=== PATIENT | male | born 1950 | race African-American/Black ===

== ENCOUNTER → 2019-11-19 | Outpatient (CLI) | payer MEDICARE ==
[2015-10-29 10:38] VITALS: BP 145/76
[~2019-11-19] MED LIST: ALLO300T PO; AMLO-187 PO; ASPI-630 PO; ATOR40TA PO; CALC-584 PO; DOCU-109 PO; FERR325T14 PO; GABA-585 PO; HYDR-2761 PO; HYDR-2765 PO; HYDR-3164 PO; LOSA1TAB25 PO; MAGN400T5 PO; MELO15TA6 PO; METH750T2 PO; METO25TA4 PO; MULT-505 PO; ONDA4TAB10 SL; POTA20TA4 PO; RIVA20TA2 PO; SOTA80TA48 PO; TAMS0.4C97 PO; TORS20TA2 PO; [UNRECOGNIZED DRUG - CODE] IV
[2019-11-19 11:05] LABS: BASO % 1 % (0-3); EOS # 0.1 x10^3/uL (0.0-0.7); EOS % 3 % (0-3); HEMATOCRIT 33.1 % (39.0-53.0); HEMOGLOBIN 10.9 g/dL (13.0-17.5); LYMPH # 1.2 x10^3/uL (1.0-4.8); LYMPH % 26 % (24-48); MEAN CORPUSCULAR HEMOGLOBIN 29 pg (25-35); MEAN CORPUSCULAR HGB CONC 33 g/dL (31-37); MEAN CORPUSCULAR VOLUME 87 fL (79-100); MONO # 0.2 x10^3/uL (0.0-1.1); MONO % 5 % (0-9); NEUT % 65 % (31-73); PLATELET COUNT 214 x10^3/uL (140-400); RED BLOOD COUNT 3.79 x10^6/uL (4.30-5.70); RED CELL DISTRIBUTION WIDTH 16.4 % (11.5-14.5); WHITE BLOOD COUNT 4.6 x10^3/uL (4.0-11.0)
[2019-11-19 11:18] LABS: ALBUMIN/GLOBULIN RATIO 0.6 (1.0-1.7); CALCIUM 7.7 mg/dL (8.5-10.1); CREATININE 1.3 mg/dL (0.7-1.3); POTASSIUM 3.7 mmol/L (3.5-5.1); TOTAL BILIRUBIN 0.4 mg/dL (0.2-1.0); TOTAL PROTEIN 8.1 g/dL (6.4-8.2)
== END ==
LOC: SURGPAT 09:39
PROVIDERS: ATTEND Neurological Surgery
DX: Z01.812 Encounter for preprocedural laboratory examination (principal); M48.062 Spinal stenosis, lumbar region with neurogenic claudication; M54.16 Radiculopathy, lumbar region; Z20.828 Contact with and (suspected) exposure to other viral communicable diseases; Z88.3 Allergy status to other anti-infective agents
CPT/HCPCS: 80053; 85025; 87641; U0003

== ENCOUNTER 2019-11-22 07:31 | Observation (INO) | payer MEDICARE ==
--- NOTE | 2019-11-21 15:45 | HP ---
ADMIT DATE: 11/22/2019. DATE OF SURGERY: 11/22/2019. HISTORY OF PRESENT ILLNESS: The patient is a pleasant 69-year-old who has difficulty with soreness in his low back and pain in his lower extremities. The right side is more involved than the left. The pain tends to radiate into his buttocks and into the posterior thighs and legs. On the right side, there is also some anterior thigh pain. Mornings are worse for him with regard to pain. He states that he takes gabapentin and tramadol. He has had epidural steroid injections over the years, but they have become less effective recently. PAST MEDICAL HISTORY: Gout, heart attack, failure, permanent pacemaker, hypertension, kidney problems, arthritis, sickle cell trait. PAST SURGICAL HISTORY: He had a carpal tunnel release in 2018, cholecystectomy in 2019, partial thyroidectomy in 2019 and a permanent pacemaker in 2019. FAMILY HISTORY: Alzheimer disease, diabetes, heart problem/disease, hypertension, NV at an early age. SOCIAL HISTORY: He is retired. . Rarely exercises. Smokes one half pack per day and has for 10 years. Drinks coffee and soda daily. ALLERGIES: BETADINE. CURRENT MEDICATIONS: Zoloft, gabapentin, furosemide, amlodipine, allopurinol, aspirin, ferrous sulfate, multivitamin, potassium, tamsulosin, Xarelto, magnesium, atorvastatin, calcium. ALLERGIES: TRAMADOL, TYLENOL. REVIEW OF SYSTEMS: A 12-point review of systems was obtained and is noncontributory except for that mentioned above. PHYSICAL EXAMINATION: NEUROSURGERY EXAMINATION: GENERAL APPEARANCE: Alert, pleasant, no acute distress. HEAD: Normocephalic and atraumatic. SKIN: Warm and dry. MUSCULOSKELETAL: Lumbar paraspinal muscle bulk is normal, restricted range of motion of the lumbar spine, [id number] tenderness of lower lumbar spine with palpation, normal range of motion of the lower extremities bilaterally. EXTREMITIES: No clubbing, cyanosis or edema. NEUROLOGIC: Alert and oriented x 3, normal recent and remote memory. Strength 5/5 in bilateral lower extremities, sensory was intact to light touch in bilateral lower extremities. Reflexes are present and symmetric in the lower extremities bilaterally, negative straight leg raising bilaterally, normal gait. IMAGING: I reviewed a lumbar MRI scan. On that study, there are significant lateral recess stenoses and right greater than left degree of central canal stenosis at L4-L5 There is right-sided neural foraminal narrowing present at L3-L4. On the bone scan, there is also evidence of Paget's disease in the right ischium and right iliac bone. ASSESSMENT/ PLAN: I believe the problems at L3-L4 and L4-L5 are responsible for a significant portion of his back and leg pain. He failed conservative measures. My recommendation is that he consider decompressive surgery at those levels, which would be decompressing L4-L5 and decompressing at L3-L4. I did discuss that with him as well as the risks and technique of the surgery. He understands and would like to go ahead. We will make the arrangements. BILL SYED MD DR: LEXI/cesar JOB#: [id number] / [id number] WESLEY
[2019-11-22] VITALS (9 sets, daily range): BP systolic 113–154; BP diastolic 66–79
[~2019-11-22] VITALS: Ht 167.6 cm; Wt 122.0 kg
[~2019-11-22 07:31] MED LIST changes: +BACITRACIN 50,000 UNIT in IV NORMAL SALINE 1000ML BAG 1,000 ML IRR ONE; +GELATIN SPONGE SIZE 100. ONE; -HYDR-2761 PO; +HYDROmorphone 2 MG/ML VIAL IV PRN; +IV RINGERS,LACTATED 1000ML 1,000 ML IV SCH; +KETOROLAC 60 MG/2 ML VIAL. ONE; +LIDOCAINE 1% PF 2 ML VIAL. ID PRN; -METH750T2 PO; +MORPHINE SULFATE 2 MG/ML VIAL. IV PRN; +ONDANSETRON PF 4 MG/2 ML VIAL. IV PRN; +PROCHLORPERAZINE 10 MG/2 ML VIAL. IV PRN; +THROMBIN TOPICAL 20,000 UNIT SPRAY.SYRN KIT TP ONE; +fentaNYL PF VIAL 100 MCG/2 ML VIAL IV PRN
[2019-11-22] MEDS ORDERED: BUPIVACAINE MPF 0.5% 30 ML VIAL. ONE (08:12)
[2019-11-22] MEDS ORDERED: SUCCINYLCHOLINE 200 MG/10 ML VIAL. ONE (08:17)
[2019-11-22] MEDS ORDERED: ROCURONIUM 50 MG/5 ML VIAL. ONE (08:17)
[2019-11-22] MEDS ORDERED: REMIFENTANIL 2 MG VIAL. IV ONE (08:18)
[2019-11-22] MEDS ORDERED: fentaNYL PF VIAL 100 MCG/2 ML VIAL ONE ×3 (08:18→14:06)
[2019-11-22] MEDS ORDERED: DESFLURANE > 120 MINUTES IH ONE ×2 (09:52→09:57)
[2019-11-22] MEDS ORDERED: LIDOCAINE 2% PF 5 ML VIAL. ONE (09:52)
[2019-11-22] MEDS ORDERED: ONDANSETRON PF 4 MG/2 ML VIAL. ONE (09:53)
[2019-11-22] MEDS ORDERED: PROPOFOL 10 MG/ML (20ML) VIAL. IV ONE (09:53)
[2019-11-22] MEDS ORDERED: DEXAMETHASONE SOD PHOS 20 MG/5 ML VIAL. ONE (09:53)
[2019-11-22] MEDS ORDERED: ePHEDrine PF IN SALINE 50 MG/10 ML SYRINGE. IV ONE (09:56)
[2019-11-22] MEDS ORDERED: PHENYLEPHRINE in 0.9% NACL PF 1 MG/10 ML SYRINGE. IV ONE (09:56)
[2019-11-22] MEDS ORDERED: PHENYLEPHRINE 10 MG/ML VIAL. ONE (09:57)
[2019-11-22] MEDS ORDERED: KETOROLAC 60 MG/2 ML VIAL. ONE (09:58)
[2019-11-22] MEDS ORDERED: BUPIVACAINE-EPI 0.25%-1:200000 MPF 30 ML VIAL. INJ ONE (10:00)
[2019-11-22] MEDS ORDERED: LIDOCAINE 1%/EPI 1:100,000 20 ML VIAL. INJ ONE (10:15)
[2019-11-22] MEDS ORDERED: PROPOFOL 50 ML IV ONE ×2 (10:18→11:24)
[2019-11-22] MEDS ORDERED: 0.9 % SODIUM CHLORIDE 20 ML VIAL. IJ ONE (11:36)
[2019-11-22] MEDS ORDERED: REMIFENTANIL 1 MG VIAL. IV ONE ×2 (11:36→12:45)
[2019-11-22] MEDS ORDERED: GELATIN SPONGE SIZE 100. ONE (13:26)
[2019-11-22] MEDS ORDERED: THROMBIN TOPICAL 20,000 UNIT SPRAY.SYRN KIT TP ONE (13:27)
[2019-11-22] MEDS ORDERED: ceFAZolin SODIUM IV Push 1 GM VIAL. IVP ONE (13:44)
[2019-11-22] MEDS ORDERED: NEOSTIGMINE METHYLSULFATE 5 MG/5 ML SYRINGE. ONE (13:52)
--- NOTE | 2019-11-22 15:30 | NUR ---
Arrived to the unit by bed. Alert and oriented. No c/o at this time. Lower back dressing is d/i. New ice pack applied. Able to move all extremities without difficulty, pedal pulses + bilaterally and warm touch. IVF's intact and infusing. KEN's and OBDULIO's on bilaterally. Oriented to room and controls. Side rails up x's 2 with call light in reach. at bedside. Cont. monitor.
--- NOTE | 2019-11-22 16:00 | NUR ---
Ambulated to bathroom with steady gait. Voided large amt of yellow urine. Return back to bed. Cont. monitor.
[2019-11-22] MEDS ORDERED: POTASSIUM CL 20MEQ D5-0.45NACL 1,000 ML IV SCH (19:30)
[2019-11-22] MEDS ORDERED: HYDROcodone/APAP 5/325MG 1 TAB TABLET PO PRN (19:30)
[2019-11-22] MEDS ORDERED: fentaNYL PF VIAL 100 MCG/2 ML VIAL IVP PRN (19:30)
[2019-11-22] MEDS ORDERED: METHOCARBAMOL 750 MG TABLET PO PRN (19:30)
[2019-11-22] MEDS ORDERED: FLU VACC QS 2020-21(6MOS+)/PF 0.5 ML SYRINGE. VAX IM ONE (21:00)
[2019-11-22] MEDS ORDERED: ATORVASTATIN CALCIUM 40 MG TABLET. PO SCH (21:00)
[2019-11-22] MEDS: CALCIUM CARB/VIT D3 500/200 TABLET. PO SCH (21:27)
[2019-11-22] MEDS: GABAPENTIN 100 MG CAPSULE. PO SCH (21:27)
[2019-11-22] MEDS: SOTALOL 80 MG TABLET. PO SCH (21:28)
[2019-11-23] MEDS: HYDROcodone/APAP 5/325MG 1 TAB TABLET PO PRN ×3 (01:40→10:54)
--- NOTE | 2019-11-23 01:40 | NUR ---
Patient has Flu shot ordered. Questioned Patient on if he gets Flu shot and allergy to eggs. Patient states "I get them,but when I did the phone Prehab class I was told to wait until after surgery." Patient request to wait for now.
[2019-11-23 01:44] VITALS: BP 120/74
[2019-11-23 06:12] VITALS: BP 130/81
[2019-11-23 08:44] VITALS: BP 116/71
[2019-11-23] MEDS: CALCIUM CARB/VIT D3 500/200 TABLET. PO SCH (08:46)
[2019-11-23] MEDS: SOTALOL 80 MG TABLET. PO SCH (08:47)
[2019-11-23] MEDS ORDERED: ALLOPURINOL 300 MG TABLET. PO SCH (09:00)
[2019-11-23] MEDS ORDERED: FERROUS SULFATE 325 MG TABLET. PO SCH (09:00)
[2019-11-23] MEDS ORDERED: amLODIPine BESYLATE 10 MG TABLET PO SCH (09:00)
[2019-11-23] MEDS ORDERED: MULTIVITAMIN with MINERAL TABLET. PO SCH (09:00)
[2019-11-23] MEDS ORDERED: TORSEMIDE 20 MG TABLET. PO SCH (09:00)
[2019-11-23] MEDS ORDERED: MAGNESIUM OXIDE 400 MG TABLET PO SCH (09:00)
[2019-11-23] MEDS ORDERED: ASPIRIN CHEWABLE 81 MG TABLET. PO SCH (09:00)
[2019-11-23] MEDS ORDERED: TAMSULOSIN 0.4 MG CAP.ER.24H. PO SCH (09:00)
[2019-11-23] MEDS ORDERED: POTASSIUM CHLORIDE 20 MEQ TABLET.ER. PO SCH (09:00)
[2019-11-23] MEDS ORDERED: METH750T2 PO (09:49)
[2019-11-23] MEDS ORDERED: HYDR-2761 PO (09:49)
[2019-11-23] MEDS ORDERED: DOCU-109 PO (09:49)
--- NOTE | 2019-11-23 09:54 | DISCH ---
DISCHARGE INSTRUCTIONS Condition on Discharge Condition on Discharge: Stable Activity After Discharge Activity Instructions for Disc: Activity as tolerated, Avoid exertion, Other, see below Other activity instructions: no drivig for a week Bathing Instructions: Shower-keep dressing dry Lifting Instructions after Dis: No heavy lifting, No pulling or pushing Diet after Discharge Diet after Discharge: Regular Additional Diet Restrictions: resume home diet Wound Incision Care Wound/Incision Care: Ice to area for comfort, Keep wound/cast CDI, Keep wound elevated, Do not change dressing Other wound/incision instructi: may remove dressing in 48 hours if dry, may shower, no soaking Contacting the DRNoemi after DC Call your doctor for: Concerns you may have Follow-Up Follow up with: Dr. Syed's nurse in 2 weeks [phone] BILL SYED MD Nov 23, 2019 09:54
--- NOTE | 2019-11-23 10:58 | PDOC ---
PROGRESS NOTES Date of Service DATE: 11/23/19 TIME: 10:56 Subjective Subjective POD #1 S/P lumbar decompression L3-4, L4-5 up in chair has been ambulating in [place] legs feel stronger pain well controlled Objective Objective Vital Signs Date Time Temp Pulse Resp B/P (MAP) Pulse Ox O2 Delivery O2 Flow Rate FiO2 11/23/19 08:47 70 116/71 11/23/19 07:15 18 98 Room Air 11/23/19 06:12 98.6 98.6 11/22/19 14:15 10 Intake and Output 11/23/19 07:00 Intake Total 5383 ml Output Total 1950 ml Balance 3433 ml Intake Oral 3360 ml IV Total 2023 ml Output Urine Total 1850 ml Estimated Blood Loss 100 ml Physical Exam General: Alert, Oriented X3, Cooperative, No acute distress 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 Medications Current Medications Bacitracin 36482 unit/Sodium Chloride 1,000 ml @ 1,000 mls/hr 1X ONCE IRR Last administered on 11/22/19at 10:22; Start 11/22/19 at 06:00; Stop 11/22/19 at 06:59; Status DC Ondansetron HCl (Zofran) 4 mg PRN Q6HRS PRN IV NAUSEA/VOMITING; Start 11/22/19 at 07:00; Stop 11/23/19 at 07:00; Status DC Fentanyl Citrate (Fentanyl 2ml Vial) 25 mcg PRN Q5MIN PRN IV MILD PAIN 1-3; Start 11/22/19 at 07:00; Stop 11/23/19 at 07:00; Status DC Fentanyl Citrate (Fentanyl 2ml Vial) 50 mcg PRN Q5MIN PRN IV MODERATE TO SEVERE PAIN Last administered on 11/22/19at 14:48; Start 11/22/19 at 07:00; Stop 11/23/19 at 07:00; Status DC Morphine Sulfate (Morphine Sulfate) 1 mg PRN Q10MIN PRN IV SEVERE PAIN 7-10; Start 11/22/19 at 07:00; Stop 11/23/19 at 07:00; Status DC Ringer's Solution 1,000 ml @ 30 mls/hr Q24H IV Last administered on 11/22/19at 08:07; Start 11/22/19 at 07:00; Stop 11/22/19 at 18:59; Status DC Lidocaine HCl (Xylocaine-Mpf 1% 2ml Vial) 2 ml PRN 1X PRN ID PRIOR TO IV START; Start 11/22/19 at 07:00; Stop 11/23/19 at 07:00; Status DC Hydromorphone HCl (Dilaudid) 0.5 mg PRN Q10MIN PRN IV SEV PAIN, Second choice; Start 11/22/19 at 07:00; Stop 11/23/19 at 07:00; Status DC Prochlorperazine Edisylate (Compazine) 5 mg PACU PRN PRN IV NAUSEA, MRX1; Start 11/22/19 at 07:00; Stop 11/23/19 at 07:00; Status DC Cefazolin Sodium/ Dextrose 50 ml @ 100 mls/hr 1X PREOP PRN IV PRIOR TO PROCEDURE Last administered on 11/22/19at 09:25; Start 11/22/19 at 06:00; Stop 11/22/19 at 18:00; Status DC Gelatin (Gelfoam Size 100) 1 each STK-MED ONCE .ROUTE Last administered on 11/22/19at 10:22; Start 11/22/19 at 07:26; Stop 11/22/19 at 07:27; Status DC Ketorolac Tromethamine (Toradol Im) 60 mg STK-MED ONCE .ROUTE ; Start 11/22/19 at 07:26; Stop 11/22/19 at 07:27; Status DC Thrombin 20,000 unit STK-MED ONCE TP Last administered on 11/22/19at 10:22; Start 11/22/19 at 07:26; Stop 11/22/19 at 07:27; Status DC Bupivacaine HCl (Sensorcaine Mpf 0.5%) 30 ml STK-MED ONCE .ROUTE ; Start 11/22/19 at 08:12; Stop 11/22/19 at 08:13; Status DC Rocuronium [place] (Zemuron) 50 mg STK-MED ONCE .ROUTE ; Start 11/22/19 at 08:17; Stop 11/22/19 at 08:17; Status DC Succinylcholine Chloride (Anectine) 200 mg STK-MED ONCE .ROUTE ; Start 11/22/19 at 08:17; Stop 11/22/19 at 08:18; Status DC Fentanyl Citrate (Fentanyl 2ml Vial) 100 mcg STK-MED ONCE .ROUTE ; Start 11/22/19 at 08:18; Stop 11/22/19 at 08:18; Status DC Remifentanil HCl (Ultiva) 2 mg STK-MED ONCE IV ; Start 11/22/19 at 08:18; Stop 11/22/19 at 08:18; Status DC Desflurane (Suprane) 90 ml STK-MED ONCE IH ; Start 11/22/19 at 09:52; Stop 11/22/19 at 09:52; Status DC Lidocaine HCl (Lidocaine Pf 2% Vial) 5 ml STK-MED ONCE .ROUTE ; Start 11/22/19 at 09:52; Stop 11/22/19 at 09:53; Status DC Propofol (Diprivan) 200 mg STK-MED ONCE IV ; Start 11/22/19 at 09:53; Stop 11/22/19 at 09:53; Status DC Dexamethasone Sodium Phosphate (Decadron) 20 mg STK-MED ONCE .ROUTE ; Start 11/22/19 at 09:53; Stop 11/22/19 at 09:53; Status DC Ondansetron HCl (Zofran) 4 mg STK-MED ONCE .ROUTE ; Start 11/22/19 at 09:53; Stop 11/22/19 at 09:53; Status DC Ephedrine Sulfate (ePHEDrine PF IN SALINE SYRINGE) 50 mg STK-MED ONCE IV ; Start 11/22/19 at 09:56; Stop 11/22/19 at 09:57; Status DC Phenylephrine HCl (PHENYLEPHRINE in 0.9% NACL PF) 1 mg STK-MED ONCE IV ; Start 11/22/19 at 09:56; Stop 11/22/19 at 09:57; Status DC Phenylephrine HCl (Piter-Synephrine Inj) 10 mg STK-MED ONCE .ROUTE ; Start 11/22/19 at 09:57; Stop 11/22/19 at 09:57; Status DC Desflurane (Suprane) 90 ml STK-MED ONCE IH ; Start 11/22/19 at 09:57; Stop 11/22/19 at 09:57; Status DC Bupivacaine HCl/ Epinephrine Bitart (Sensorcaine-Epi 0.25%-1:130847 Mpf) 30 ml 1X ONCE INJ ; Start 11/22/19 at 10:00; Stop 11/22/19 at 10:01; Status DC Ketorolac Tromethamine (Toradol Im) 60 mg STK-MED ONCE .ROUTE Last administered on 11/22/19at 10:22; Start 11/22/19 at 09:58; Stop 11/22/19 at 09:59; Status DC Lidocaine/ Epinephrine (LIDOCAINE 1%-EPI 1:100,000 Multi-Dose) 20 ml 1X ONCE INJ Last administered on 11/22/19at 10:22; Start 11/22/19 at 10:15; Stop 11/22/19 at 10:16; Status DC Propofol 50 ml @ As Directed STK-MED ONCE IV ; Start 11/22/19 at 10:18; Stop 11/22/19 at 10:19; Status DC Propofol 50 ml @ As Directed STK-MED ONCE IV ; Start 11/22/19 at 11:24; Stop 11/22/19 at 11:25; Status DC Remifentanil HCl (Ultiva) 1 mg STK-MED ONCE IV ; Start 11/22/19 at 11:36; Stop 11/22/19 at 11:36; Status DC Sodium Chloride (SODIUM CHLORIDE 20ml) 20 ml STK-MED ONCE IJ ; Start 11/22/19 at 11:36; Stop 11/22/19 at 11:36; Status DC Remifentanil HCl (Ultiva) 1 mg STK-MED ONCE IV ; Start 11/22/19 at 12:45; Stop 11/22/19 at 12:45; Status DC Gelatin (Gelfoam Size 100) 1 each STK-MED ONCE .ROUTE Last administered on 11/22/19at 13:29; Start 11/22/19 at 13:26; Stop 11/22/19 at 13:26; Status DC Thrombin 20,000 unit STK-MED ONCE TP Last administered on 11/22/19at 13:29; Start 11/22/19 at 13:27; Stop 11/22/19 at 13:28; Status DC Cefazolin Sodium (Ancef) 1 gm STK-MED ONCE IVP ; Start 11/22/19 at 13:44; Stop 11/22/19 at 13:45; Status DC Neostigmine [place] (Neostigmine Methylsulfate) 5 mg STK-MED ONCE .ROUTE ; Start 11/22/19 at 13:52; Stop 11/22/19 at 13:52; Status DC Fentanyl Citrate (Fentanyl 2ml Vial) 100 mcg STK-MED ONCE .ROUTE ; Start 11/22/19 at 14:03; Stop 11/22/19 at 14:04; Status DC Fentanyl Citrate (Fentanyl 2ml Vial) 100 mcg STK-MED ONCE .ROUTE ; Start 11/22/19 at 14:06; Stop 11/22/19 at 14:06; Status DC Influenza Virus Vaccine Quadrival (Fluzone Quad Syringe) 0.5 ml ONCE ONCE VAX IM ; Start 11/22/19 at 21:00; Stop 11/22/19 at 21:01; Status DC Allopurinol (Zyloprim) 300 mg DAILY PO Last administered on 11/23/19at 08:46; Start 11/23/19 at 09:00 Amlodipine Besylate (Norvasc) 10 mg DAILY PO Last administered on 11/23/19at 08:47; Start 11/23/19 at 09:00 Aspirin (Aspirin Chewable) 81 mg DAILY PO Last administered on 11/23/19at 08: 46; Start 11/23/19 at 09:00 Atorvastatin Calcium (Lipitor) 40 mg HS PO Last administered on 11/22/19at 21:27; Start 11/22/19 at 21:00 Ferrous Sulfate (Feosol) 325 mg DAILY PO Last administered on 11/23/19at 08:46; Start 11/23/19 at 09:00 Gabapentin (Neurontin) 100 mg BID PO Last administered on 11/22/19at 21:27; Start 11/22/19 at 21:00 Potassium Chloride (Klor-Con) 20 meq DAILY PO Last administered on 11/23/19at 08:46; Start 11/23/19 at 09:00 Sotalol HCl (Betapace) 80 mg BID PO Last administered on 11/23/19at 08:47; Start 11/22/19 at 21:00 Tamsulosin HCl (Flomax) 0.4 mg DAILY PO Last administered on 11/23/19at 08:46; Start 11/23/19 at 09:00 Torsemide (Demadex) 20 mg DAILY PO Last administered on 11/23/19 08:47; Start 11/23/19 at 09:00 Calcium/Vitamin D (Oscal D 500mg/ 200uts) 1 tab BIDWMEALS PO Last administered on 11/23/19 08:46; Start 11/22/19 at 20:00 Magnesium Oxide (Magnesium Oxide) 400 mg DAILY PO Last administered on 11/23/19at 08:46; Start 11/23/19 at 09:00 Multivitamins (Thera M Plus) 1 tab DAILY PO Last administered on 11/23/19 08:46; Start 11/23/19 at 09:00 Methocarbamol (Robaxin) 750 mg TID PRN PRN PO MUSCLE SPASMS; Start 11/22/19 at 19:30 Potassium Chloride/Dextrose/ Sod Cl 1,000 ml @ 75 mls/hr [id number] IV ; Start 11/22/19 at 19:30 Fentanyl Citrate (Fentanyl 2ml Vial) 50 mcg PRN Q2HR PRN IVP PAIN; Start 11/22/19 at 19:30 Acetaminophen/ Hydrocodone Bitart (Lortab 5/325) 1 tab PRN Q4HRS PRN PO MODERATE PAIN Last administered on 11/22/19at 21:35; Start 11/22/19 at 19:30 Acetaminophen/ Hydrocodone Bitart (Lortab 5/325) 2 tab PRN Q4HRS PRN PO SEVERE PAIN Last administered on 11/23/19at 06:15; Start 11/22/19 at 19:30 Active Scripts Active Reported Magnesium Oxide 400 Mg Tablet 400 Mg PO DAILY Xarelto (Rivaroxaban) 20 Mg Tablet 20 Mg PO DAILY Flomax (Tamsulosin Hcl) 0.4 Mg Cap.er.24h 0.4 Mg PO DAILY Klor-Con M20 (Potassium Chloride) 20 Meq Tab.er.prt 20 Meq PO DAILY Once Daily (Multivitamin) 1 Each Tablet 1 Each PO DAILY Ferrous Sulfate 325 Mg Tablet 325 Mg PO DAILY Aspirin 81 Mg Tab.chew 81 Mg PO DAILY Torsemide 20 Mg Tablet 20 Mg PO DAILY Calcium 500-Vit D3 600 Tablet (Calcium Carbonate/Vitamin D3) 1 Each Tablet 1 Each PO BID Gabapentin (Gabapentin) 100 Mg Capsule 100 Mg PO BID Sotalol (Sotalol Hcl) 80 Mg Tablet 80 Mg PO BID Zoledronic Acid 4 Mg/100 Ml (Zoledronic Acid/Mannitol&Water) 4 Mg/100 Ml Piggyback 4 Mg IV 1X Lipitor (Atorvastatin Calcium) 40 Mg Tablet 40 Mg PO HS Allopurinol 300 Mg Tablet 300 Mg PO DAILY Amlodipine Besylate 10 Mg Tablet 10 Mg PO DAILY Vitals/I & O Vital Sign - Last 24 Hours 11/22/19 11/22/19 11/22/19 11/22/19 14:15 14:15 14:30 14:45 Temp 97.7 97.7 97.7 97.7 Pulse 69 69 69 Resp 15 15 20 B/P (MAP) 112/60 135/82 127/70 Pulse Ox 100 98 92 O2 Delivery Room Air Room Air Room Air Room Air Simple Mask O2 Flow Rate 11/22/19 11/22/19 11/22/19 11/22/19 14:48 15:00 15:15 15:30 Temp 97.6 97.6 Pulse 68 70 70 Resp 20 B/P (MAP) 126/68 133/76 (95) Pulse Ox 99 93 93 96 O2 Delivery Room Air Room Air 11/22/19 11/22/19 11/22/19 11/22/19 15:45 15:56 16:00 16:15 Temp 97.5 97.5 Pulse 70 69 Resp 18 B/P (MAP) 132/75 (94) 151/69 (96) 154/73 (100) Pulse Ox 97 O2 Delivery Room Air Room Air 11/22/19 11/22/19 11/22/19 11/22/19 16:45 17:15 18:15 19:15 Temp 98.0 98.5 98.6 98.0 98.5 98.6 Pulse 72 74 69 Resp 20 20 20 B/P (MAP) 139/73 (95) 149/67 (94) 135/79 (97) 129/66 (87) Pulse Ox 98 98 96 O2 Delivery Room Air Room Air Room Air 11/22/19 11/22/19 11/22/19 11/22/19 20:00 21:28 21:35 22:35 Pulse 69 Resp 18 B/P (MAP) 100/60 Pulse Ox 96 O2 Delivery Room Air Room Air Room Air 11/22/19 11/23/19 11/23/19 11/23/19 23:21 01:40 01:44 02:40 Temp 98.9 98.7 98.9 98.7 Pulse 70 72 Resp 16 18 18 B/P (MAP) 113/66 (82) 120/74 (89) Pulse Ox 96 96 98 O2 Delivery Room Air Room Air Room Air BiPAP/CPAP 11/23/19 11/23/19 11/23/19 11/23/19 02:40 06:12 06:15 07:15 Temp 98.6 98.6 Pulse 69 Resp 18 18 18 B/P (MAP) 130/81 (97) Pulse Ox 98 98 98 O2 Delivery BiPAP/CPAP Room Air Room Air Room Air 11/23/19 11/23/19 11/23/19 08:44 08:47 08:47 Pulse 70 70 70 B/P (MAP) 116/71 (86) 116/71 116/71 Intake and Output 11/22/19 11/22/19 11/23/19 15:00 23:00 07:00 Intake Total 1500 ml 1883 ml 2000 ml Output Total 100 ml 1350 ml 500 ml Balance 1400 ml 533 ml 1500 ml Justifications for Admission Other Justification GIANCARLO RIVERA CLINICAL DATA MANAGER Nov 23, 2019 10:58
[2019-11-23] MEDS: GABAPENTIN 100 MG CAPSULE. PO SCH (11:04)
[2019-11-23 11:13] VITALS: BP 130/81
--- NOTE | 2019-11-23 12:18 | NUR ---
Discharged to home per w/c accompanied by spouse, dressing changed prior to dismissal instructed spouse on dressing change and given supplies, belongings taken with patient, see instruction sheet for details
--- NOTE | 2019-11-26 15:08 | PATHOLOGY ---
[facility] Accession Number: [id number] . 01 Material submitted: . vertebral column - LUMBAR DECOMPRESSION . 01 Clinical history: . LUMBAR STENOSIS WITH NEUROGENIC CLAUDICATION, RADICULOPATHY . 02 Diagnosis: Segments of fibrocartilaginous, adipose, and skeletal muscle tissue and bone, lumbar decompression: - Degenerative changes of fibrocartilaginous tissue. (JPM:[facility] 11/26/2019) P 11/26/2019 1203 Local . 02 Comment: There is no evidence of an acute inflammatory process or malignancy. (JPM:[facility] 11/26/2019) . 02 Electronically signed: . Clif Hood MD, Pathologist NPI- [id number] . 01 Gross description: . The specimen is received in formalin, labeled "Blanco, Piero, lumbar decompression" and consists of multiple segments of ley, rubbery and gritty soft tissue and bone measuring 4.0 x 3.4 x 0.6 cm in aggregate. A client account representative portion is submitted in A1 following decalcification. (SDY; 11/23/2019) SYU/SYU 11/26/2019 1202 Local . 02 Pathologist provided ICD-10: M51.36 . 02 CPT . 124408, [id number] Specimen Comment: A courtesy copy of this report has been sent to [phone], [phone] Specimen Comment: [id number] Specimen Comment: Report sent to / DR APODACA Performed at: 01 [facility] [address], [place] [id number] MD Colt Prakash MD Phone: [phone] Performed at: 02 [facility] [address], [place] [id number] MD Clif Hood MD Phone: [phone]
--- NOTE | 2019-11-28 19:22 | OP ---
DATE OF SURGERY: 11/22/2019 PREOPERATIVE DIAGNOSIS: Lateral recess stenosis and lumbar spinal stenosis, L3-L4, L4-L5. POSTOPERATIVE DIAGNOSIS: Lateral recess stenosis and lumbar spinal stenosis L3-L4, L4-L5. OPERATION PERFORMED: 1. Right direct laminectomy L4-L5. 2. Right-sided hemilaminotomy with decompression of dura and nerve root, L3-L4. The operation was done with EMG monitoring, fluoroscopy, microscopic dissection. STOVE REFINISHER: ANYA Cortés assisted with the surgery. She assisted with the exposure, the microdecompression at both levels as well as the closure. OPERATIVE INDICATIONS: The patient is a pleasant 69-year-old who developed severe intractable back and right much greater than left leg pain. On imaging studies, he had the above-mentioned findings and I recommended surgery after he failed to improve with conservative measures including multiple rounds of epidural steroid injections. He understood the surgery and the risks. He wished to go ahead. DESCRIPTION OF PROCEDURE: Following general endotracheal anesthesia, the patient was positioned prone on the Juan table. His lumbar region was prepped and draped in a standard fashion. KEN hose and AV impulse boots were applied for DVT prophylaxis. The microscope was draped. Fluoroscopy was draped and brought into the field. Monitoring was established. Ancef 2 grams was given less than 1 hour prior to initiation of the surgery. Using fluoroscopic guidance, a midline incision was made extending from L3-L5. I dissected down through skin and subcutaneous tissue and reflected the paraspinal muscles and placed a [place] microdisk retractor. There was a moderate amount of adipose tissue and I was forced to use my longest retractors in order to obtain exposure. I did expose well the spinous processes of L3, L4, and L5 as well as the lamina. At this point, I brought in the microscope beginning at L4-L5. I drilled a very generous hemilaminotomy. I did tilt the patient away from me slightly and drilled to the midline and then I trimmed away the very thickened ligamentum flavum and performed a partial foraminotomy. The dura was markedly compressed and I gently retracted the root medially. The disk was bulging slightly, but very firm and no diskectomy was warranted. After trimming this material away, I felt I had an excellent decompression. I did work as far as I could medially and safely. Following this, then I adjusted the retractor and I went to the L3-L4 and in a similar fashion, drilled a generous hemilaminotomy. As at L4-L5, I did also drill a partial foraminotomy. I trimmed away the ligament exposing the dura and the exiting root, fully decompressed the region. I again palpated the disk and no diskectomy was warranted. The ligament was very thick as at L4-L5 and partly calcified. I am peeling this material away, which was partly attached to the dura, widely opened this region. At this point, then I irrigated copiously with antibiotic solution, removed the retractor, obtained hemostasis in the muscle. I closed the wound in layers with absorbable suture. Skin was closed with 4-0 subcuticular stitch. I felt the surgery went very well. BILL SYED MD DR: LEXI/cesar JOB#: [id number] / [id number]
== END 2019-11-23 12:45 | disposition home or self-care (01) ==
LOC: SURG 07:31 → 4 SOUTHEST 14:50
PROVIDERS: ADMIT Neurological Surgery; ATTEND Neurological Surgery
DX: M48.062 Spinal stenosis, lumbar region with neurogenic claudication (principal); M54.16 Radiculopathy, lumbar region; M79.606 Pain in leg, unspecified; I13.0 Hypertensive heart and chronic kidney disease with heart failure and stage 1 through stage 4 chronic kidney disease, or unspecified chronic kidney disease; I50.9 Heart failure, unspecified; N18.9 Chronic kidney disease, unspecified; D57.3 Sickle-cell trait; M10.9 Gout, unspecified; F17.210 Nicotine dependence, cigarettes, uncomplicated; M19.90 Unspecified osteoarthritis, unspecified site; Z90.49 Acquired absence of other specified parts of digestive tract; Z95.0 Presence of cardiac pacemaker; Z98.890 Other specified postprocedural states; Z79.82 Long term (current) use of aspirin
CPT/HCPCS: 63005; 63047; 63048; 76000; 88304; 88311; 97116; 97162; 97530; A7015; G0378; G0379; J0330; J0690; J1100; J1885; J2370; J2405; J2704; J2710; J3010; J3490; J7030; J7120